=== PATIENT | female | born 2000 | race Caucasian/White ===

== ENCOUNTER 2021-01-10 14:49 | Inpatient (IN) ==
[2021-01-10] MEDS ORDERED: SODIUM CHLORIDE 0.9% 1000ML 1,000 ML IV ONE ×2 (16:40→18:41)
[2021-01-10] MEDS ORDERED: KETOROLAC TROMETHAMINE 15 MG/ML VIAL IV ONE (16:40)
--- NOTE | 2021-01-10 16:43 | Emergency Department Note ---
Impression & Plan Colitis, Abdominal pain, Anemia, Leukocytosis ED Provider Note NAME: VERA ALLEN AGE: 20 SEX: F : 2000 ARRIVES VIA: Walk-In INFORMANT: Patient ED PROVIDER(S): Yon Grayson DO CHIEF COMPLAINT: Abdominal pain and headache HPI: Patient is a 20-year-old female who presents to the ER for diffuse abdominal pain. This has been coming off and on for the past 3 months. Used to be worse with eating and now it is fairly constant since this past Saturday thr oughout the whole belly. Admits to nausea but no vomiting. No dysuria, urgency, or frequency. Last menstrual period was 1 week ago. Normal bowel movement this morning. No cough or runny nose. Pain is an 8 out of 10. Patient also has a frontal headache. She does admit to bright red blood per rectum over the past 2 weeks. She does not remember any dark tarry stools ROS: See above HPI for pertinent positives & negatives. A total of 10 systems reviewed and were otherwise negative. PAST MEDICAL HISTORY:See Below PAST SURGICAL HISTORY:See Below FAMILY HISTORY:See Below SOCIAL HISTORY:See Below HOME MEDICATIONS:See Below ALLERGIES:See Below VITALS:See Below PHYSICAL EXAMINATION: GENERAL: Sitting up in bed, alert, well appearing, well nourished, no distress, non-toxic EYE EXAM: normal conjunctiva. PERRL and EOM's grossly intact. OROPHARYNX: no exudate, no erythema, lips, buccal mucosa, and tongue normal and mucous membranes are moist NECK: supple, no nuchal rigidity, no adenopathy, non-tender LUNGS: Clear to auscultation. Normal chest wall mechanics HEART: no murmurs, S1 normal and S2 normal RECTAL: Heme positive stools ABDOMEN: abdomen soft, non-tender, normo-active bowel sounds, no masses, no rebound or guarding. UPPER EXTREMITIES: upper extremities are grossly normal. LOWER EXTREMITIES: No pitting edema. NEURO EXAM: Normal sensorium, cranial nerves II-XII grossly intact, normal speech, no gross weakness of arms, no gross weakness of legs. MEDICAL DECISION MAKING: Patient is a 20-year-old female who presents ER for above-stated complaint. IV was established blood work was obtained. Labs show leukocytosis of 12. Mild anemia at 8.8 said was significantly elevated at 8. BMP with mild hypokalemia. LFTs bili was a remark. Patient was. Patient was Covid positive. CT abdomen pelvis showed diffuse colitis. Discussed with Dr. Tucker from GI who recommends admission and 40 mg of steroids IV Solu-Medrol. Patient was given IV fluids steroids and updated bedside. Discussed with the hospitalist admitted for further work-up. Triage Nursing notes reviewed. Limited review of prior medical records performed Vital Signs: reviewed and remarkable for tachy Differential diagnosis: Differential diagnoses includes but is not limited to gastritis, peptic ulcer disease, GERD, gallbladder disease, pancreatitis, small bowel obstruction, acute coronary syndrome, pericarditis, ischemic bowel, irritable bowel disease, irritable bowel syndrome, appendicitis, diverticulitis, malignancy, hernia, urinary tract infection, torsion, /ectopic (if female), perforation, trauma, infectious. ER treatment provided: See below Diagnostics interpreted by me: ECG: none Cardiac Monitoring: An order was placed for continuous cardiac monitoring. The monitor shows a rate of 101 with sinus rhythm. Laboratory studies: As stated above and show below. Imaging studies: See below Consultation(s): Discussed with gastroenterology as stated above Discussed with hospitalist for further evaluation Procedures: none Critical Care: None Past Med/Surg History Medical History Anxiety and depression Surgical History No significant past surgical history Family History Grandmother (Maternal) Diabetes Father Hypertension Dyslipidemia Social History Smoking Status: Never smoker Second Hand Exposure: No; Hx Alcohol Use: Yes Alcohol type: wine Hx Substance Use: No Preferred Language: Tajik Communication Ability: Effective Beliefs That Will Affect Care: None Current Living Situation: Other Current Living Situation Comment: [employer] roommate current occupational status: student current occupation: at [employer] Feels Safe at Home: Yes Assistive Devices: None Allergies Allergies Allergy/AdvReac Type Severity Reaction Status Date / Time amoxicillin Allergy Verified 01/10/21 16:55 Penicillins Allergy Verified 01/10/21 16:55 Home Meds Home Medications Medication Instructions Recorded Confirmed Control 1 tab PO HS 01/10/21 01/10/21 acetaminophen 325 mg tablet 650 mg PO QID PRN 01/10/21 01/10/21 Results & Data (ED) Vital Signs Vital Signs - 24 hr 01/10/21 14:52 01/10/21 16:35 01/10/21 17:02 Temperature 36.3 C L Temperature Source Temporal Artery Scan Pulse Rate 119 H 103 H 89 Pulse Rate from SpO2 Sensor 101 H 91 H Respiratory Rate 18 17 18 Respiratory Effort / Characteristics Non-Labored Respiratory Depth Normal Blood Pressure 134/98 149/96 H Blood Pressure Mean 110 113 Pulse Oximetry 100 100 100 Oxygen Delivery Method Room Air Room Air Sepsis Recent Fever Within 48 Hours No Sepsis New/Unexplained Change in Mental Status No Sepsis Action Taken by Nursing No Action Required 01/10/21 17:30 01/10/21 18:00 01/10/21 18:30 Temperature Temperature Source Pulse Rate 87 89 102 H Pulse Rate from SpO2 Sensor 88 90 98 H Respiratory Rate 21 20 23 Respiratory Effort / Characteristics Respiratory Depth Blood Pressure 140/86 124/92 Blood Pressure Mean 104 102 Pulse Oximetry 100 98 98 Oxygen Delivery Method Room Air Sepsis Recent Fever Within 48 Hours Sepsis New/Unexplained Change in Mental Status Sepsis Action Taken by Nursing 01/10/21 19:00 01/10/21 19:30 01/10/21 20:00 Temperature Temperature Source Pulse Rate 101 H 92 H 100 H Pulse Rate from SpO2 Sensor 101 H 94 H 101 H Respiratory Rate 21 24 24 Respiratory Effort / Characteristics Respiratory Depth Blood Pressure 129/99 135/88 143/97 H Blood Pressure Mean 109 103 112 Pulse Oximetry 100 100 98 Oxygen Delivery Method Sepsis Recent Fever Within 48 Hours Sepsis New/Unexplained Change in Mental Status Sepsis Action Taken by Nursing Laboratory Data Result diagrams: 01/10/21 16:39 01/10/21 16:39 Lab Results 01/10/21 01/10/21 01/10/21 Range/Units 16:39 16:39 16:39 WBC 12.05 H (4.8-10.8) K/uL RBC 3.70 L (4.2-5.4) M/uL Hgb 8.8 L (12.0-16.0) g/dL Hct 29.4 L (37-47) % MCV 79.5 L (80-100) fL MCH 23.8 L (25-34) pg MCHC 29.9 L (32-36) g/dL RDW Std Deviation 42.0 (36.4-46.3) fL RDW Coeff of Jammie 14.6 H (11.5-14.5) % Plt Count 589 H (130-400) K/uL MPV 8.4 (7.4-10.4) fL Immature Gran % (Auto) 0.5 % Neut % (Auto) 76.3 % Lymph % (Auto) 9.7 % Lasalle % (Auto) 7.7 % Eos % (Auto) 5.6 % Baso % (Auto) 0.2 % Neut # (Auto) 9.18 H (1.4-6.5) K/uL Lymph # (Auto) 1.17 L (1.2-3.4) K/uL Lasalle # (Auto) 0.93 H (0.11-0.59) K/uL Eos # (Auto) 0.68 H (0-0.5) K/uL Baso # (Auto) 0.03 (0-0.2) K/uL Immature Gran # (Auto) 0.06 H (0.00-0.02) K/uL ESR 78 H (0-20) mm/hr Sodium 139 (136-145) mmol/L Potassium 3.4 L (3.5-5.1) mmol/L Chloride 106 (98-107) mmol/L Carbon Dioxide 26 (21-32) mmol/L Anion Gap 7.0 (3-11) BUN 8 (7-18) mg/dl Creatinine 0.79 (0.6-1.2) mg/dl Est Cr Clr Drug Dosing 119.6 ml/min Est GFR ( Amer) 124.9 ml/min Est GFR (Non-Af Amer) 107.8 ml/min BUN/Creatinine Ratio 10.2 (10-20) Glucose 102 H (70-99) mg/dl Calcium 9.2 (8.5-10.1) mg/dl Iron 15 L (35-150) mcg/dl TIBC 347 (250-450) mcg/dl Ferritin 7.0 L (8-388) ng/ml Total Bilirubin 0.1 L (0.2-1) mg/dl AST 13 L (15-37) U/L ALT 17 (12-78) U/L Alkaline Phosphatase 96 (45-117) U/L C-Reactive Protein 6.57 H (0-0.29) mg/dl Total Protein 8.1 (6.4-8.2) gm/dl Albumin 2.8 L (3.4-5.0) gm/dl Globulin 5.3 H (2.5-4.0) gm/dl Albumin/Globulin Ratio 0.5 L (0.9-2) Lipase 117 (73-393) U/L COVID-19 Eval Order SARS-CoV-2 (PCR) (Negative) 01/10/21 01/10/21 Range/Units 18:55 18:55 WBC (4.8-10.8) K/uL RBC (4.2-5.4) M/uL Hgb (12.0-16.0) g/dL Hct (37-47) % MCV (80-100) fL MCH (25-34) pg MCHC (32-36) g/dL RDW Std Deviation (36.4-46.3) fL RDW Coeff of Jammie (11.5-14.5) % Plt Count (130-400) K/uL MPV (7.4-10.4) fL Immature Gran % (Auto) % Neut % (Auto) % Lymph % (Auto) % [place] % (Auto) % Eos % (Auto) % Baso % (Auto) % Neut # (Auto) (1.4-6.5) K/uL Lymph # (Auto) (1.2-3.4) K/uL [place]alle # (Auto) (0.11-0.59) K/uL Eos # (Auto) (0-0.5) K/uL Baso # (Auto) (0-0.2) K/uL Immature Gran # (Auto) (0.00-0.02) K/uL ESR (0-20) mm/hr Sodium (136-145) mmol/L Potassium (3.5-5.1) mmol/L Chloride (98-107) mmol/L Carbon Dioxide (21-32) mmol/L Anion Gap (3-11) BUN (7-18) mg/dl Creatinine (0.6-1.2) mg/dl Est Cr Clr Drug Dosing ml/min Est GFR ( Amer) ml/min Est GFR (Non-Af Amer) ml/min BUN/Creatinine Ratio (10-20) Glucose (70-99) mg/dl Calcium (8.5-10.1) mg/dl Iron (35-150) mcg/dl TIBC (250-450) mcg/dl Ferritin (8-388) ng/ml Total Bilirubin (0.2-1) mg/dl AST (15-37) U/L ALT (12-78) U/L Alkaline Phosphatase (45-117) U/L C-Reactive Protein (0-0.29) mg/dl Total Protein (6.4-8.2) gm/dl Albumin (3.4-5.0) gm/dl Globulin (2.5-4.0) gm/dl Albumin/Globulin Ratio (0.9-2) Lipase (73-393) U/L COVID-19 Eval Order Covid19 at [facility] SARS-CoV-2 (PCR) POSITIVE A* (Negative) Administered Medications Lactated Ringer's (Lr) 1,000 mls @ 100 mls/hr IV .Q10H SILVANO Stop: 01/11/21 17:51 Last Admin: 01/10/21 22:07 Dose: 100 mls/hr Documented by: [id number] Discontinued Medications Sodium Chloride (Nss 1000ml) 1,000 mls @ 999 mls/hr IV .Q1H1M ONE Stop: 01/10/21 17:40 Last Infusion: 01/10/21 17:44 Dose: 0 mls/hr Documented by: [id number] Admin: 01/10/21 16:43 Dose: 999 mls/hr Documented by: [id number] Sodium Chloride (Nss 1000ml) 1,000 mls @ 999 mls/hr IV .Q1H1M ONE Stop: 01/10/21 19:41 Last Infusion: 01/10/21 19:55 Dose: 0 mls/hr Documented by: [id number] Admin: 01/10/21 18:54 Dose: 999 mls/hr Documented by: [id number] Ioversol (Optiray 320 100ml) 92 ml IV ONCE ONE Stop: 01/10/21 17:44 Last Admin: 01/10/21 17:46 Dose: 92 ml Documented by: [id number] Ketorolac Tromethamine (Ketorolac Tromethamine 15 Mg/Ml Vial) 15 mg IV NOW ONE Stop: 01/10/21 16:41 Last Admin: 01/10/21 16:46 Dose: 15 mg Documented by: [id number] Methylprednisolone (Methylprednisolone 40 Mg/Ml Vial) 40 mg IV NOW STA Stop: 01/10/21 18:54 Last Admin: 01/10/21 18:59 Dose: 40 mg Documented by: [id number] Potassium Chloride (Potassium Chloride Crtab 20 Meq Tabcr) 40 meq PO NOW STA Stop: 01/10/21 20:29 Last Admin: 01/10/21 20:37 Dose: 40 meq Documented by: [id number] Imaging Data Radiologist's Impression: Abdomen/Pelvis CT 01/10/21 16:40 CT OF THE ABDOMEN AND PELVIS WITH CONTRAST CLINICAL HISTORY: Abdominal pain. Diarrhea. COMPARISON STUDY: None. TECHNIQUE: Following IV administration of 92 mL of Optiray, axial images of the abdomen and pelvis were obtained from the lung bases to the proximal femurs. Images were reviewed in the axial, sagittal, and coronal planes. IV contrast was administered without complication. Automated exposure control was utilized for the study. A dose lowering technique was utilized adhering to the principles of ALARA. CT DOSE: 356.61 mGy.cm FINDINGS: Lung bases are unremarkable. No pneumatosis, free air or portal venous gas is present. The liver, spleen, adrenal glands, kidneys and pancreas are normal. There is no biliary or pancreatic ductal dilatation. No perihepatic or pericholecystic infiltration. There is no acute process. The nephrograms are symmetric. The caliber of the appendix is normal, measuring 5 mm. There is a probable 7 mm appendicolith within the appendiceal tip. There is mild adjacent infiltration. However, the findings do not strongly suggest acute appendicitis. Of note, there is long segment wall thickening of the colon and to a lesser extent the rectum. There is relative sparing of the ascending colon and cecum. There is evidence for mild hyperemia. There is trace fluid within the pelvis. There are a few mildly enlarged mesenteric lymph nodes. Index node on image 194 of 471 measures 1.3 x 1 cm. Numerous mildly enlarged pericolonic lymph nodes are also present. An index node along the superior aspect of the transverse colon me asures 1.2 x 1 cm. Major vasculature is patent. No acute fracture or suspicious lesion is identified within the visualized skeletal structures. IMPRESSION: 1. Wall thickening of the majority of the colon with evidence for hyperemia. The findings represent a nonspecific colitis which could be infectious or inflammato ry, such as ulcerative colitis, in etiology. No abscess. No free air. 2. Appendicolith within the appendiceal tip with mild adjacent infiltration. However, normal caliber appendix. Overall, the findings do not strongly suggest acute appendicitis. 3. Mildly enlarged mesenteric and pericolonic lymph nodes. Although nonspecific, these are probably reactive. ACT 112: Negative or not required by law. Electronically signed by: Alvaro Hartley M.D. 01/10/2021 6:07 PM Discharge Plan Visit Data Chief Complaint: GI Assessment Stated Complaint: STOMACH PAIN/NAUSEA/DIARRHEA/HEAD PAIN ED Provider: Yon Grayson Discharge Problem: Colitis, Abdominal pain, Anemia, Leukocytosis Patient Disposition: Admitted As Inpatient Discharge Instructions Interventions: ED Discharge Assessment Last Done: 01/10/21 21:33
[2021-01-10 16:53] LABS: Basophils # (auto) 0.03 K/uL (0-0.2); Basophils % (auto) 0.2 %; Eosinophils # (auto) 0.68 K/uL (0-0.5); Eosinophils % (auto) 5.6 %; Hematocrit (blood only) 29.4 % (37-47); Hemoglobin 8.8 g/dL (12.0-16.0); Immature Granulocytes # (auto) 0.06 K/uL (0.00-0.02); Immature Granulocytes % (auto) 0.5 %; Lymphocytes # (auto) 1.17 K/uL (1.2-3.4); Lymphocytes % (auto) 9.7 %; Mean Corpuscular Hemoglobin 23.8 pg (25-34); Mean Corpuscular Hgb Conc 29.9 g/dL (32-36); Mean Corpuscular Volume 79.5 fL (80-100); Mean Platelet Volume 8.4 fL (7.4-10.4); Monocytes # (auto) 0.93 K/uL (0.11-0.59); Monocytes % (auto) 7.7 %; Neutrophils # (auto) 9.18 K/uL (1.4-6.5); Neutrophils % (auto) 76.3 %; Platelet Count 589 K/uL (130-400); RDW Coefficient of Variation 14.6 % (11.5-14.5); White Blood Count 12.05 K/uL (4.8-10.8)
[2021-01-10 17:13] LABS: Albumin Level 2.8 gm/dl (3.4-5.0); BUN Creatinine Ratio 10.2 (10-20); Calcium 9.2 mg/dl (8.5-10.1); Creatinine Clr Calc Pharmacy 119.6 ml/min; Est GFR (African American) 124.9 ml/min; Est GFR (Non-African American) 107.8 ml/min; Potassium 3.4 mmol/L (3.5-5.1)
[2021-01-10 17:16] LABS: Albumin Globulin Ratio 0.5 (0.9-2); Bilirubin,Total 0.1 mg/dl (0.2-1); Globulin 5.3 gm/dl (2.5-4.0); Total Protein 8.1 gm/dl (6.4-8.2)
[2021-01-10] MEDS ORDERED: OPTIRAY 320 100ml IV ONE (17:43)
--- NOTE | 2021-01-10 18:08 | CT Scan Report ---
CT OF THE ABDOMEN AND PELVIS WITH CONTRAST CLINICAL HISTORY: Abdominal pain. Diarrhea. COMPARISON STUDY: None. TECHNIQUE: Following IV administration of 92 mL of Optiray, axial images of the abdomen and pelvis we re obtained from the lung bases to the proximal femurs. Images were reviewed in the axial, sagittal, and coronal planes. IV contrast was administered without complication. Automated exposure control wa s utilized for the study. A dose lowering technique was utilized adhering to the principles of ALARA . CT DOSE: 356.61 mGy.cm FINDINGS: Lung bases are unremarkable. No pneumatosis, free air or portal venous gas is present. The liver, spleen, adrenal glands, kidneys and pancreas are normal. There is no biliary or pancreatic lennie sean dilatation. No perihepatic or pericholecystic infiltration. There is no acute process. The nephro grams are symmetric. The caliber of the appendix is normal, measuring 5 mm. There is a probable 7 mm appendicolith within the appendiceal tip. There is mild adjacent infiltration. However, the findings do not strongly suggest acute appendicitis. Of note, there is long segment wall thickening of the col on and to a lesser extent the rectum. There is relative sparing of the ascending colon and cecum. The re is evidence for mild hyperemia. There is trace fluid within the pelvis. There are a few mildly enl arged mesenteric lymph nodes. Index node on image 194 of 471 measures 1.3 x 1 cm. Numerous mildly enl arged pericolonic lymph nodes are also present. An index node along the superior aspect of the transv erse colon measures 1.2 x 1 cm. Major vasculature is patent. No acute fracture or suspicious lesion i s identified within the visualized skeletal structures. IMPRESSION: 1. Wall thickening of the majority of the colon with evidence for hyperemia. The findings represent a nonspecific colitis which could be infectious or inflammatory, such as ulcerative colitis, in etiolo gy. No abscess. No free air. 2. Appendicolith within the appendiceal tip with mild adjacent infiltration. However, normal caliber appendix. Overall, the findings do not strongly suggest acute appendicitis. 3. Mildly enlarged mesenteric and pericolonic lymph nodes. Although nonspecific, these are probably r eactive. ACT 112: Negative or not required by law. Electronically signed by: Alvaro Hartley M.D. 01/10/2021 6:07 PM
[2021-01-10 19:16] LABS: C Reactive Protein 6.57 mg/dl (0-0.29)
--- NOTE | 2021-01-10 20:03 | History & Physical Report ---
Date of Service January 10, 2021 Assessment & Plan (1) Abdominal pain: Plan: 20yo female with no significant past medical or surgical history presenting with abdominal pain, bloody diarrhea ongoing for the last week. Patient has been experiencing intermittent lower abdominal pain x 3-4 months which has worsened this week. Workup is significant for neutrophil predominant leukocytosis with WBC=12.05, microcytic/hypochromic anemia with Hgb-8.8 and Hct = 29.4, Qoo=086, elevated ESR of 78 and CRP of 6.57. CT of the abdomen with wall thickening of the majority of the colon suggestive of nonspecific colitis - infectious vs inflammatory. Differential to include i nflammatory bowel disease - Crohns or Ulcerative colitis, infectious colitis -Observation to medical -Check stool for c. diff, stool culture. Patient does not endorse practices that would place her at risk for parasitic infection. No recent travel or camping -Solumedrol 40mg IV BID -Tylenol, OxyIR as needed for pain -Zofran as needed for nausea -GI consultation appreciated (2) Colitis: Plan: As above. Infectious vs inflammatory process (3) Anemia: Plan: Microcytic/hypochromic anemia -Check iron studies -Check CBC in AM Plan: F/E/N - LR at 100mL/hr x 2 liters, K repletion, repeat labs in AM, NPO for now Ppx - SCDs Code - Full Dispo - Observation to medical History of Present Illness Chief Complaint: Abdominal pain Primary Care Provider: [facility] Vera Segura is a 20yo female with no significant medical or surgical history presenting with abdominal pain. Patient is a [employer] student studying [employer]. She has been having intermittent abdominal pain for the last 3-4 months. She was seen by her PCP in [place] prior to returning to school. She had an abdominal ultrasound and lab work which was unrevealing. She is scheduled to see [facility] on 01/25/21. She reports worsening abdominal pain over the last week. Abdominal pain is severe, cramping, located in bandlike distribution of the lower abdomen. She has some vomiting in response to the pain when it is severe but does not endorse nausea. She has intermittent abdominal bloating, diarrhea with blood this week. Pain is unrelated to oral intake and is almost always relieved with bowel movement. She denies painful bowel movements. Has occasional tenesmus. Patient has tried dietary elimination with no relief in symptoms. She cut out lactose x 2 weeks as well as gluten x 2 weeks with no improvement. She has no personal or family history of inflammatory bowel disease. No recent travel, sick contacts, altered dietary habits or ingestion of raw/undercooked foods. Additionally she describes occasional migratory body aches and pains such as pain in her shoulders. She had pain in her right heel 4 days ago with difficulty walking. She also had a headache today that she describes as shooting pain in her forehead. Otherwise, no complaints. She denies fever, chills, cough, SOB, chest pain. Denies rashes, skin lesions, joint pain or inflammation, eye redness or pain, oral lesions/ulcers ER Course: Solumedrol 40mg IV, Toradol 15mg IV, NSS x 2L Allergies Allergy/AdvReac Type Severity Reaction Status Date / Time amoxicillin Allergy Verified 01/10/21 16:55 Penicillins Allergy Verified 01/10/21 16:55 Home Medications Medication Instructions Recorded Confirmed Type Control 1 tab PO HS 01/10/21 01/10/21 History acetaminophen 325 mg tablet 650 mg PO QID PRN 01/10/21 01/10/21 History Past Med/Surg History Medical History Anxiety and depression Surgical History No significant past surgical history Family History Grandmother (Maternal) Diabetes Father Hypertension Dyslipidemia Social History Smoking Status: Never smoker Second Hand Exposure: No; Hx Alcohol Use: No Hx Substance Use: No Preferred Language: Citizen Of [place] current occupational status: student current occupation: at [employer] Feels Safe at Home: Yes Review of Systems Review of Systems: All systems reviewed & are unremarkable except as noted in HPI & below Physical Exam Physical Exam: General: patient resting comfortably, NAD, non-toxic in appearance, AA&O x 4 Skin: warm, dry, intact, no rashes or lesions HEENT: NC/AT, PERRL, EOMI, anicteric sclera, conjunctiva without injection, external ear normal to inspection and nontender, nares patent, moist mucus membranes, dentition intact, no oropharyngeal lesions, neck supple, trachea midline, no LAD, no thyromegaly, no JVD Heart: +S1/S2, regular, tachycardic, no m/r/g Lungs: equal air entry bilaterally, no rales/rhonchi/wheezes Abd: +BS, soft, tender in the lower abdomen without rebound/guarding/peritoneal signs, no masses/organomegaly/ascites Ext: warm, 2+ pulses in UE/LE bilaterally, no clubbing/cyanosis or edema Neuro: nonfocal, patient AA&O x 4, speech intact, no facial droop, moving all extremities on command with equal strength 5/5 Results & Data Results & Data ([facility]) Vital Signs (Past 12 Hours) Vital Signs Temp Pulse Resp BP Pulse Ox 01/10/21 19:30 92 H 24 135/88 100 01/10/21 19:00 101 H 21 129/99 100 01/10/21 18:30 102 H 23 124/92 98 01/10/21 18:00 89 20 140/86 98 01/10/21 17:30 87 21 100 01/10/21 17:02 89 18 100 01/10/21 16:35 103 H 17 149/96 H 100 01/10/21 14:52 36.3 C L 119 H 18 134/98 100 Laboratory Results Laboratory Results WBC 12.05 K/uL (4.8-10.8) H 01/10/21 16:39 RBC 3.70 M/uL (4.2-5.4) L 01/10/21 16:39 Hgb 8.8 g/dL (12.0-16.0) L 01/10/21 16:39 Hct 29.4 % (37-47) L 01/10/21 16:39 MCV 79.5 fL (80-100) L 01/10/21 16:39 MCH 23.8 pg (25-34) L 01/10/21 16:39 MCHC 29.9 g/dL (32-36) L 01/10/21 16:39 RDW Std Deviation 42.0 fL (36.4-46.3) 01/10/21 16:39 RDW Coeff of Jammie 14.6 % (11.5-14.5) H 01/10/21 16:39 Plt Count 589 K/uL (130-400) H 01/10/21 16:39 MPV 8.4 fL (7.4-10.4) 01/10/21 16:39 Immature Gran % (Auto) 0.5 % 01/10/21 16:39 Neut % (Auto) 76.3 % 01/10/21 16:39 Lymph % (Auto) 9.7 % 01/10/21 16:39 [place] % (Auto) 7.7 % 01/10/21 16:39 Eos % (Auto) 5.6 % 01/10/21 16:39 Baso % (Auto) 0.2 % 01/10/21 16:39 Neut # (Auto) 9.18 K/uL (1.4-6.5) H 01/10/21 16:39 Lymph # (Auto) 1.17 K/uL (1.2-3.4) L 01/10/21 16:39 [place] # (Auto) 0.93 K/uL (0.11-0.59) H 01/10/21 16:39 Eos # (Auto) 0.68 K/uL (0-0.5) H 01/10/21 16:39 Baso # (Auto) 0.03 K/uL (0-0.2) 01/10/21 16:39 Immature Gran # (Auto) 0.06 K/uL (0.00-0.02) H 01/10/21 16:39 ESR 78 mm/hr (0-20) H 01/10/21 16:39 Sodium 139 mmol/L (136-145) 01/10/21 16:39 Potassium 3.4 mmol/L (3.5-5.1) L 01/10/21 16:39 Chloride 106 mmol/L (98-107) 01/10/21 16:39 Carbon Dioxide 26 mmol/L (21-32) 01/10/21 16:39 Anion Gap 7.0 (3-11) 01/10/21 16:39 BUN 8 mg/dl (7-18) 01/10/21 16:39 Creatinine 0.79 mg/dl (0.6-1.2) 01/10/21 16:39 Est Cr Clr Drug Dosing 119.6 ml/min 01/10/21 16:39 Est GFR ( Amer) 124.9 ml/min 01/10/21 16:39 Est GFR (Non-Af Amer) 107.8 ml/min 01/10/21 16:39 BUN/Creatinine Ratio 10.2 (10-20) 01/10/21 16:39 Glucose 102 mg/dl (70-99) H 01/10/21 16:39 Calcium 9.2 mg/dl (8.5-10.1) 01/10/21 16:39 Total Bilirubin 0.1 mg/dl (0.2-1) L 01/10/21 16:39 AST 13 U/L (15-37) L 01/10/21 16:39 ALT 17 U/L (12-78) 01/10/21 16:39 Alkaline Phosphatase 96 U/L (45-117) 01/10/21 16:39 C-Reactive Protein 6.57 mg/dl (0-0.29) H 01/10/21 16:39 Total Protein 8.1 gm/dl (6.4-8.2) 01/10/21 16:39 Albumin 2.8 gm/dl (3.4-5.0) L 01/10/21 16:39 Globulin 5.3 gm/dl (2.5-4.0) H 01/10/21 16:39 Albumin/Globulin Ratio 0.5 (0.9-2) L 01/10/21 16:39 Lipase 117 U/L (73-393) 01/10/21 16:39 COVID-19 Eval Order Covid19 at [facility] 01/10/21 18:55 Impressions Abdomen/Pelvis CT 01/10/21 16:40 CT OF THE ABDOMEN AND PELVIS WITH CONTRAST CLINICAL HISTORY: Abdominal pain. Diarrhea. COMPARISON STUDY: None. TECHNIQUE: Following IV administration of 92 mL of Optiray, axial images of the abdomen and pelvis were obtained from the lung bases to the proximal femurs. Images were reviewed in the axial, sagittal, and coronal planes. IV contrast was administered without complication. Automated exposure control was utilized for the study. A dose lowering technique was utilized adhering to the principles of ALARA. CT DOSE: 356.61 mGy.cm FINDINGS: Lung bases are unremarkable. No pneumatosis, free air or portal venous gas is present. The liver, spleen, adrenal glands, kidneys and pancreas are normal. There is no biliary or pancreatic ductal dilatation. No perihepatic or pericholecystic infiltration. There is no acute process. The nephrograms are symmetric. The caliber of the appendix is normal, measuring 5 mm. There is a probable 7 mm appendicolith within the appendiceal tip. There is mild adjacent infiltration. However, the findings do not strongly suggest acute appendicitis. Of note, there is long segment wall thickening of the colon and to a lesser extent the rectum. There is relative sparing of the ascending colon and cecum. There is evidence for mild hyperemia. There is trace fluid within the pelvis. There are a few mildly enlarged mesenteric lymph nodes. Index node on image 194 of 471 measures 1.3 x 1 cm. Numerous mildly enlarged pericolonic lymph nodes are also present. An index node along the superior aspect of the transverse colon measures 1.2 x 1 cm. Major vasculature is patent. No acute fracture or suspicious lesion is identified within the visualized skeletal structures. IMPRESSION: 1. Wall thickening of the majority of the colon with evidence for hyperemia. The findings represent a nonspecific colitis which could be infectious or inflammatory, such as ulcerative colitis, in etiology. No abscess. No free air. 2. Appendicolith within the appendiceal tip with mild adjacent infiltration. However, normal caliber appendix. Overall, the findings do not strongly suggest acute appendicitis. 3. Mildly enlarged mesenteric and pericolonic lymph nodes. Although nonspecific, these are probably reactive. ACT 112: Negative or not required by law. Electronically signed by: Alvaro Hartley M.D. 01/10/2021 6:07 PM Code Status & VTE Plan VTE Prophylaxis Plan VTE Prophylaxis will be ordered: Yes PG Care Time/CCT Total # of Minutes Spent Total Time Spent with Patient: Total time spent is greater than 50% in coordination of care (as documented) at patient's floor/unit and/or counseling patient: Coding Level of Care Code INT OBSERVATION CARE 50M LVL 2 Diagnoses Abdominal pain R10.9 Colitis K52.9 Anemia D64.9
[2021-01-10] MEDS ORDERED: POTASSIUM CHLORIDE CRTAB 20 MEQ TABCR PO STA (20:28)
[2021-01-10] MEDS ORDERED: oxyCODONE HCL IR 5 MG TAB (IMMEDIATE RELEASE) PO PRN ×2 (21:52)
[2021-01-10] MEDS ORDERED: ONDANSETRON INJ 2 MG/ML 2 ML VIAL IV PRN (21:52)
[2021-01-10] MEDS: LACTATED RINGER'S 1,000 ML IV SCH (22:07)
[2021-01-11 06:45] LABS: Appearance Urine Clear (Clear); Bilirubin Urine Negative (Negative); Blood Urine Negative (Negative); Color Urine Yellow; Glucose Urine UA Negative (Negative); Ketones Urine 2+ (Negative); Leukocyte Esterase Urine Negative (Negative); Nitrite Urine Negative (Negative); Protein Urine Negative (Negative); Specific Gravity Urine 1.015 (1.000-1.030); Urobilinogen Urine Negative (Negative); pH Urine 6.5 (4.5-7.5)
[2021-01-11 07:33] LABS: Basophils # (auto) 0.01 K/uL (0-0.2); Basophils % (auto) 0.1 %; Hematocrit (blood only) 27.9 % (37-47); Hemoglobin 8.3 g/dL (12.0-16.0); Immature Granulocytes # (auto) 0.07 K/uL (0.00-0.02); Immature Granulocytes % (auto) 0.8 %; Lymphocytes # (auto) 0.64 K/uL (1.2-3.4); Lymphocytes % (auto) 7.5 %; Mean Corpuscular Hemoglobin 23.3 pg (25-34); Mean Corpuscular Hgb Conc 29.7 g/dL (32-36); Mean Corpuscular Volume 78.4 fL (80-100); Mean Platelet Volume 8.7 fL (7.4-10.4); Monocytes # (auto) 0.32 K/uL (0.11-0.59); Monocytes % (auto) 3.8 %; Neutrophils # (auto) 7.45 K/uL (1.4-6.5); Neutrophils % (auto) 87.8 %; Platelet Count 597 K/uL (130-400); RDW Coefficient of Variation 14.3 % (11.5-14.5); RDW Standard Deviation 40.9 fL (36.4-46.3); Red Blood Count 3.56 M/uL (4.2-5.4); White Blood Count 8.49 K/uL (4.8-10.8)
[2021-01-11 08:09] LABS: Alanine Aminotransferase 17 U/L (12-78); Albumin Level 2.4 gm/dl (3.4-5.0); Alkaline Phosphatase 81 U/L (45-117); Aspartate Aminotransferase 15 U/L (15-37); BUN Creatinine Ratio 9.8 (10-20); Bilirubin Direct < 0.1 mg/dl (0-0.2); Bilirubin,Total 0.2 mg/dl (0.2-1); Blood Urea Nitrogen 6 mg/dl (7-18); Calcium 9.1 mg/dl (8.5-10.1); Carbon Dioxide 22 mmol/L (21-32); Chloride 107 mmol/L (98-107); Creatinine Clr Calc Pharmacy 151.2 ml/min; Est GFR (African American) 149.7 ml/min; Est GFR (Non-African American) 129.1 ml/min; Glucose 110 mg/dl (70-99); Potassium 4.2 mmol/L (3.5-5.1); Sodium 138 mmol/L (136-145); Total Protein 7.1 gm/dl (6.4-8.2)
[2021-01-11] MEDS: LACTATED RINGER'S 1,000 ML IV SCH ×2 (08:33→23:25)
[2021-01-11] MEDS: methylPREDNISolone 40 MG in SYRINGE 0 ML IV SCH ×2 (08:35→21:01)
--- NOTE | 2021-01-11 11:35 | Gastrointestinal Consultation ---
Date of Consultation January 11, 2021 Assessment & Plan (1) Colitis: (2) Anemia: (3) Abdominal pain: This is a 20-year-old female who was previously in her usual state of health until earlier this summer when she began to develop abdominal symptoms including abdominal cramping and diarrhea. Symptoms worsened and recently she has developed hematochezia with diarrhea, and worsening abdominal pain. She is a [employer] student, typically resides in [place]. Work-up notable for non specific lightest on imaging, with elevated inflammatory markers, and anemia. This raises suspicion for IBD versus infectious colitis. - Agree with IV Solu-Medrol 40 mg twice daily - Recommend bowel rest for now - Supportive care with IVF - Analgesia as needed - Unclear if she would benefit from antibiotics at this point; will await stool studies - Would monitor and document stool output - She is scheduled for GI clinic appointment in January, and I encouraged her to keep this appointment. Likely she will need colonoscopy in follow-up of her symptoms and imaging, lab findings Thank you for allowing us to participate in the care of this patient. Please call with any acute changes, questions or concerns. Please see addendum below with additional recommendation from my supervising physician. History of Present Illness Reason for Consultation: Possible UC Requesting Physician: Dr. Vera Elizabeth Attending Physician: Rojas Meng History of Present Illness This is a 20 y/o female with no significant PMhx who has been having stomach issues since September, including intermittent abd cramping, mostly postprandial along with diarrhea. Symptoms got worse as the summer progressed, and she had tests by a provider in [place] (where she is from), including abdominal ultrasound and lab work - states "was normal." She is set-up with [facility] in January. Symptoms got worse over the last few weeks with bilateral lower abd pain that is fairly constant; intense cramping and having intermittent vomiting, along with hematochezia for the last week that would occur with each BM (has diarrhea 5-6 x a day). Last BM and episode of hematochezia was yest morning. Prior to symptoms starting was having 1 formed brown per day. She presented to the ER for the symptoms. Patient was tested and found to be Covid positive, though she is having no symptoms. Work-up significant for leukocytosis, WBC 12 K, microcytic anemia with hemoglobin 8.8, HCT 29%, PLT 589, elevated ESR 78, CRP 6.57. CTAP with suggestion of nonspecific colitis of the majority of the colon. Stool studies have been ordered, however patient has not had any BMs since admission. She was placed on Solu-Medrol 40 mg IV twice daily. She was admitted to isolation with her positive Covid. Today leukocytosis improved, Hgb 8.3. Given her Covid diagnosis, chart was reviewed and I spoke to her on the phone. She states she is feeling much better today, abdominal pain improved, has not had any BMs, no recurrent hematochezia. No hematemesis or melena, fevers or chills, chest pain or shortness of breath, leg edema, rashes, headache. No recent ABX prior to her symptoms starting. Takes no OTC meds; only rx is BCP. She is a [employer] student. No family history of IBD. Allergies Allergy/AdvReac Type Severity Reaction Status Date / Time amoxicillin Allergy Verified 01/10/21 16:55 Penicillins Allergy Verified 01/10/21 16:55 Home Medications Medication Instructions Recorded Confirmed Type Control 1 tab PO HS 01/10/21 01/10/21 History acetaminophen 325 mg tablet 650 mg PO QID PRN 01/10/21 01/10/21 History Patient History Medical History Anxiety and depression Surgical History No significant past surgical history Family History Grandmother (Maternal) Diabetes Father Hypertension Dyslipidemia Social History Smoking Status: Never smoker Second Hand Exposure: No; Hx Alcohol Use: Yes Alcohol type: wine Hx Substance Use: No Preferred Language: Turkmen Communication Ability: Effective Beliefs That Will Affect Care: None Current Living Situation: Other Current Living Situation Comment: [employer] roommate current occupational status: student current occupation: at [employer] Feels Safe at Home: Yes Assistive Devices: None Review of Systems Review of Systems: A complete review of systems was performed and negative except as noted in HPI Physical Exam Physical Exam: Physical exam not performed as this was a telephone call only Results & Data ([facility]) Vital Signs (Past 12 Hours) Vital Signs Temp Pulse Resp BP Pulse Ox 01/11/21 08:38 36.6 C 106 H 18 129/87 100 Laboratory Results 01/11/21 01/11/21 01/11/21 Range/Units 07:04 07:04 06:15 WBC 8.49 (4.8-10.8) K/uL RBC 3.56 L (4.2-5.4) M/uL Hgb 8.3 L (12.0-16.0) g/dL Hct 27.9 L (37-47) % MCV 78.4 L (80-100) fL MCH 23.3 L (25-34) pg MCHC 29.7 L (32-36) g/dL RDW Std Deviation 40.9 (36.4-46.3) fL RDW Coeff of Jammie 14.3 (11.5-14.5) % Plt Count 597 H (130-400) K/uL MPV 8.7 (7.4-10.4) fL Immature Gran % (Auto) 0.8 % Neut % (Auto) 87.8 % Lymph % (Auto) 7.5 % [place] % (Auto) 3.8 % Eos % (Auto) 0.0 % Baso % (Auto) 0.1 % Neut # (Auto) 7.45 H (1.4-6.5) K/uL Lymph # (Auto) 0.64 L (1.2-3.4) K/uL [place] # (Auto) 0.32 (0.11-0.59) K/uL Eos # (Auto) 0.00 (0-0.5) K/uL Baso # (Auto) 0.01 (0-0.2) K/uL Immature Gran # (Auto) 0.07 H (0.00-0.02) K/uL ESR (0-20) mm/hr Sodium 138 (136-145) mmol/L Potassium 4.2 D (3.5-5.1) mmol/L Chloride 107 (98-107) mmol/L Carbon Dioxide 22 (21-32) mmol/L Anion Gap 8.0 (3-11) BUN 6 L (7-18) mg/dl Creatinine 0.63 (0.6-1.2) mg/dl Est Cr Clr Drug Dosing 151.2 ml/min Est GFR ( Amer) 149.7 ml/min Est GFR (Non-Af Amer) 129.1 ml/min BUN/Creatinine Ratio 9.8 L (10-20) Glucose 110 H (70-99) mg/dl Calcium 9.1 (8.5-10.1) mg/dl Iron (35-150) mcg/dl TIBC (250-450) mcg/dl Ferritin (8-388) ng/ml Total Bilirubin 0.2 (0.2-1) mg/dl Direct Bilirubin < 0.1 (0-0.2) mg/dl AST 15 (15-37) U/L ALT 17 (12-78) U/L Alkaline Phosphatase 81 (45-117) U/L C-Reactive Protein (0-0.29) mg/dl Total Protein 7.1 (6.4-8.2) gm/dl Albumin 2.4 L (3.4-5.0) gm/dl Globulin (2.5-4.0) gm/dl Albumin/Globulin Ratio (0.9-2) Lipase (73-393) U/L Urine Color Urine Appearance (Clear) Urine pH (4.5-7.5) Ur Specific [place] (1.000-1.030) Urine Protein (Negative) Urine Glucose (UA) (Negative) Urine Ketones (Negative) Urine Blood (Negative) Urine Nitrite (Negative) Urine Bilirubin (Negative) Urine Urobilinogen (Negative) Ur Leukocyte Esterase (Negative) POC Ur Test Pending COVID-19 Eval Order SARS-CoV-2 (PCR) (Negative) 01/11/21 01/10/21 01/10/21 Range/Units 06:15 18:55 18:55 WBC (4.8-10.8) K/uL RBC (4.2-5.4) M/uL Hgb (12.0-16.0) g/dL Hct (37-47) % MCV (80-100) fL MCH (25-34) pg MCHC (32-36) g/dL RDW Std Deviation (36.4-46.3) fL RDW Coeff of Jammie (11.5-14.5) % Plt Count (130-400) K/uL MPV (7.4-10.4) fL Immature Gran % (Auto) % Neut % (Auto) % Lymph % (Auto) % [place] % (Auto) % Eos % (Auto) % Baso % (Auto) % Neut # (Auto) (1.4-6.5) K/uL Lymph # (Auto) (1.2-3.4) K/uL [place] # (Auto) (0.11-0.59) K/uL Eos # (Auto) (0-0.5) K/uL Baso # (Auto) (0-0.2) K/uL Immature Gran # (Auto) (0.00-0.02) K/uL ESR (0-20) mm/hr Sodium (136-145) mmol/L Potassium (3.5-5.1) mmol/L Chloride (98-107) mmol/L Carbon Dioxide (21-32) mmol/L Anion Gap (3-11) BUN (7-18) mg/dl Creatinine (0.6-1.2) mg/dl Est Cr Clr Drug Dosing ml/min Est GFR ( Amer) ml/min Est GFR (Non-Af Amer) ml/min BUN/Creatinine Ratio (10-20) Glucose (70-99) mg/dl Calcium (8.5-10.1) mg/dl Iron (35-150) mcg/dl TIBC (250-450) mcg/dl Ferritin (8-388) ng/ml Total Bilirubin (0.2-1) mg/dl Direct Bilirubin (0-0.2) mg/dl AST (15-37) U/L ALT (12-78) U/L Alkaline Phosphatase (45-117) U/L C-Reactive Protein (0-0.29) mg/dl Total Protein (6.4-8.2) gm/dl Albumin (3.4-5.0) gm/dl Globulin (2.5-4.0) gm/dl Albumin/Globulin Ratio (0.9-2) Lipase (73-393) U/L Urine Color Yellow Urine Appearance Clear (Clear) Urine pH 6.5 (4.5-7.5) Ur Specific [place] 1.015 (1.000-1.030) Urine Protein Negative (Negative) Urine Glucose (UA) Negative (Negative) Urine Ketones 2+ H (Negative) Urine Blood Negative (Negative) Urine Nitrite Negative (Negative) Urine Bilirubin Negative (Negative) Urine Urobilinogen Negative (Negative) Ur Leukocyte Esterase Negative (Negative) POC Ur Test COVID-19 Eval Order Covid19 at [facility] SARS-CoV-2 (PCR) POSITIVE A* (Negative) 01/10/21 01/10/21 01/10/21 Range/Units 16:39 16:39 16:39 WBC 12.05 H (4.8-10.8) K/uL RBC 3.70 L (4.2-5.4) M/uL Hgb 8.8 L (12.0-16.0) g/dL Hct 29.4 L (37-47) % MCV 79.5 L (80-100) fL MCH 23.8 L (25-34) pg MCHC 29.9 L (32-36) g/dL RDW Std Deviation 42.0 (36.4-46.3) fL RDW Coeff of Jammie 14.6 H (11.5-14.5) % Plt Count 589 H (130-400) K/uL MPV 8.4 (7.4-10.4) fL Immature Gran % (Auto) 0.5 % Neut % (Auto) 76.3 % Lymph % (Auto) 9.7 % [place] % (Auto) 7.7 % Eos % (Auto) 5.6 % Baso % (Auto) 0.2 % Neut # (Auto) 9.18 H (1.4-6.5) K/uL Lymph # (Auto) 1.17 L (1.2-3.4) K/uL [place] # (Auto) 0.93 H (0.11-0.59) K/uL Eos # (Auto) 0.68 H (0-0.5) K/uL Baso # (Auto) 0.03 (0-0.2) K/uL Immature Gran # (Auto) 0.06 H (0.00-0.02) K/uL ESR 78 H (0-20) mm/hr Sodium 139 (136-145) mmol/L Potassium 3.4 L (3.5-5.1) mmol/L Chloride 106 (98-107) mmol/L Carbon Dioxide 26 (21-32) mmol/L Anion Gap 7.0 (3-11) BUN 8 (7-18) mg/dl Creatinine 0.79 (0.6-1.2) mg/dl Est Cr Clr Drug Dosing 119.6 ml/min Est GFR ( Amer) 124.9 ml/min Est GFR (Non-Af Amer) 107.8 ml/min BUN/Creatinine Ratio 10.2 (10-20) Glucose 102 H (70-99) mg/dl Calcium 9.2 (8.5-10.1) mg/dl Iron 15 L (35-150) mcg/dl TIBC 347 (250-450) mcg/dl Ferritin 7.0 L (8-388) ng/ml Total Bilirubin 0.1 L (0.2-1) mg/dl Direct Bilirubin (0-0.2) mg/dl AST 13 L (15-37) U/L ALT 17 (12-78) U/L Alkaline Phosphatase 96 (45-117) U/L C-Reactive Protein 6.57 H (0-0.29) mg/dl Total Protein 8.1 (6.4-8.2) gm/dl Albumin 2.8 L (3.4-5.0) gm/dl Globulin 5.3 H (2.5-4.0) gm/dl Albumin/Globulin Ratio 0.5 L (0.9-2) Lipase 117 (73-393) U/L Urine Color Urine Appearance (Clear) Urine pH (4.5-7.5) Ur Specific [place] (1.000-1.030) Urine Protein (Negative) Urine Glucose (UA) (Negative) Urine Ketones (Negative) Urine Blood (Negative) Urine Nitrite (Negative) Urine Bilirubin (Negative) Urine Urobilinogen (Negative) Ur Leukocyte Esterase (Negative) POC Ur Test COVID-19 Eval Order SARS-CoV-2 (PCR) (Negative) Diagnostic Findings CTAP: FINDINGS: Lung bases are unremarkable. No pneumatosis, free air or portal venous gas is present. The liver, spleen, adrenal glands, kidneys and pancreas are normal. There is no biliary or pancreatic ductal dilatation. No perihepatic or pericholecystic infiltration. There is no acute process. The nephrograms are symmetric. The caliber of the appendix is normal, measuring 5 mm. There is a probable 7 mm appendicolith within the appendiceal tip. There is mild adjacent infiltration. However, the findings do not strongly suggest acute appendicitis. Of note, there is long segment wall thickening of the colon and to a lesser extent the rectum. There is relative sparing of the ascending colon and cecum. There is evidence for mild hyperemia. There is trace fluid within the pelvis. There are a few mildly enlarged mesenteric lymph nodes. Index node on image 194 of 471 measures 1.3 x 1 cm. Numerous mildly enlarged pericolonic lymph nodes are also present. An index node along the superior aspect of the transverse colon measures 1.2 x 1 cm. Major vasculature is patent. No acute fracture or suspicious lesion is identified within the visualized skeletal structures. IMPRESSION: 1. Wall thickening of the majority of the colon with evidence for hyperemia. The findings represent a nonspecific colitis which could be infectious or inflammatory, such as ulcerative colitis, in etiology. No abscess. No free air. 2. Appendicolith within the appendiceal tip with mild adjacent infiltration. However, normal caliber appendix. Overall, the findings do not strongly suggest acute appendicitis. 3. Mildly enlarged mesenteric and pericolonic lymph nodes. Although nonspecific, these are probably reactive. (1) Anemia Anemia type: unspecified type Qualified Code(s): D64.9 - Anemia, unspecified (2) Abdominal pain Abdominal location: unspecified location Qualified Code(s): R10.9 - Unspecified abdominal pain
[2021-01-11] MEDS: ACETAMINOPHEN 325 MG TAB PO PRN (16:10)
--- NOTE | 2021-01-11 22:35 | Hospitalist Progress Note ---
Date of Service January 11, 2021 Assessment & Plan (1) Colitis: Plan: History, labs, and CT findings all concerning for IBD - UC. Infectious colitis theoretically possible but doubtful. Await cdiff/stool cx. GI has seen - they advise ongoing solumedrol. IBD suspected. Cont bowel rest today; perhaps clears tomorrow. Allow modest amount of ice chips today. Repeat labs am. IVF. (2) Iron deficiency anemia: Plan: Severe. Consider IV venofer x 3 doses while hospitalized. Check b12/folate to be complete given her malnutrition. 2nd to #1. She reports that menses are light/not heavy. (3) COVID-19: Plan: Tested positive upon admission. No symptoms except for perhaps headache, N/V. Is fully vaccinated. Could be a false positive test. Will repeat a COVID test tonight. If repeat test is neg - then would get a 3rd test on and if 3rd test is negative this would argue for false positivity at admission. If positive on tonight's test no further testing thereafter. Keep in airborne isolation. (4) Migraine headache: Plan: imitrex prn ordered tylenol prn steroids for #1 should help (5) Thrombocytosis: Plan: could be 2nd to #2 could be reactive either way simply trend (6) Severe protein-calorie malnutrition: Plan: 10+ pounds of weight loss since late November 21 #1 once able to take PO - add MVI add nutritional supplements check b12/folate consider checking 25-OH vit D Plan: spoke with pt's mother this evening - extensive update given plan of care discussed concern for IBD discussed questions answered Admission and Anticipated Discharge Date Admission Date: January 11, 2021 Subjective patient resting comfortably during the visit she c/o right-sided frontal headache - "behind the eye" - which extends back to the occiput has h/o migraines - feels somewhat like a migraine, but also somewhat different mother also has migraines has never taken prescription migraine meds patient states that for months she had abdominal upset and pain with diarrhea diarrhea worsened late November upon her return to [employer] has lost 10 pounds since school started diarrhea became bloody since late November no diarrhea since arrival to [facility] had COVID vaccine - 2 shots of Pfizer - last spring attended the [employer] [facility] [facility] foot ball game last weekend none of her roommates are sick with COVID Review of Systems Review of Systems: gen - no fevers, chills, sweats musculo - no myalgias, no arthralgias HEENT - no loss of taste or smell; no nasal congestion pulm - no cough, no dyspnea cv - no chest pain GI - had emesis yesterday, nausea, LLQ abd pain skin - no rash Physical Exam Physical Exam: gen - NAD, pleasant, nontoxic mouth - MMM neck - no JVD heart - RRR, s1 s2, no murmur lungs - CTA b/l abd - soft, tender LLQ w/ palpation; BS+, no HSM ext - no edema skin - no rash Results & Data Results & Data ([facility]) Vital Signs (Past 12 Hours) Vital Signs Temp Resp BP Pulse Ox 01/11/21 14:12 36.8 C 17 126/87 98 Laboratory Results Laboratory Results - last 24 hr 01/11/21 01/11/21 01/11/21 06:15 06:15 07:04 WBC 8.49 RBC 3.56 L Hgb 8.3 L Hct 27.9 L MCV 78.4 L MCH 23.3 L MCHC 29.7 L RDW Std Deviation 40.9 RDW Coeff of Jammie 14.3 Plt Count 597 H MPV 8.7 Immature Gran % (Auto) 0.8 Neut % (Auto) 87.8 Lymph % (Auto) 7.5 [place] % (Auto) 3.8 Eos % (Auto) 0.0 Baso % (Auto) 0.1 Neut # (Auto) 7.45 H Lymph # (Auto) 0.64 L [place] # (Auto) 0.32 Eos # (Auto) 0.00 Baso # (Auto) 0.01 Immature Gran # (Auto) 0.07 H Sodium Potassium Chloride Carbon Dioxide Anion Gap BUN Creatinine Est Cr Clr Drug Dosing Est GFR ( Amer) Est GFR (Non-Af Amer) BUN/Creatinine Ratio Glucose Calcium Total Bilirubin Direct Bilirubin AST ALT Alkaline Phosphatase Total Protein Albumin Urine Color Yellow Urine Appearance Clear Urine pH 6.5 Ur Specific [place] 1.015 Urine Protein Negative Urine Glucose (UA) Negative Urine Ketones 2+ H Urine Blood Negative Urine Nitrite Negative Urine Bilirubin Negative Urine Urobilinogen Negative Ur Leukocyte Esterase Negative POC Ur Test Pending COVID-19 Eval Order SARS-CoV-2 (PCR) 01/11/21 01/11/21 01/11/21 07:04 21:20 21:20 WBC RBC Hgb Hct MCV MCH MCHC RDW Std Deviation RDW Coeff of Jammie Plt Count MPV Immature Gran % (Auto) Neut % (Auto) Lymph % (Auto) [place] % (Auto) Eos % (Auto) Baso % (Auto) Neut # (Auto) Lymph # (Auto) [place] # (Auto) Eos # (Auto) Baso # (Auto) Immature Gran # (Auto) Sodium 138 Potassium 4.2 D Chloride 107 Carbon Dioxide 22 Anion Gap 8.0 BUN 6 L Creatinine 0.63 Est Cr Clr Drug Dosing 151.2 Est GFR ( Amer) 149.7 Est GFR (Non-Af Amer) 129.1 BUN/Creatinine Ratio 9.8 L Glucose 110 H Calcium 9.1 Total Bilirubin 0.2 Direct Bilirubin < 0.1 AST 15 ALT 17 Alkaline Phosphatase 81 Total Protein 7.1 Albumin 2.4 L Urine Color Urine Appearance Urine pH Ur Specific [place] Urine Protein Urine Glucose (UA) Urine Ketones Urine Blood Urine Nitrite Urine Bilirubin Urine Urobilinogen Ur Leukocyte Esterase POC Ur Test COVID-19 Eval Order Covid19 at [facility] SARS-CoV-2 (PCR) Pending PG Care Time/CCT Total # of Minutes Spent Total Time Spent with Patient: Total time spent is greater than 50% in coordination of care (as documented) at patient's floor/unit and/or counseling patient: Coding Level of Care Code 42247 Subseq Hosp Care Lvl 3 Diagnoses Colitis K52.9 Iron deficiency anemia D50.9 COVID-19 U07.1 Migraine headache G43.909 Thrombocytosis D47.3 Severe protein-calorie malnutrition E43
[2021-01-11] MEDS ORDERED: SUMAtriptan succinate 25 MG TAB PO PRN (22:36)
[2021-01-11 23:54] LABS: Pregnancy Test, Urine Negative (Negative)
[2021-01-12] MEDS: LACTATED RINGER'S 1,000 ML IV SCH ×2 (06:10→18:31)
[2021-01-12] MEDS: methylPREDNISolone 40 MG in SYRINGE 0 ML IV SCH ×2 (08:22→21:35)
[2021-01-12 08:27] LABS: Hematocrit (blood only) 30.1 % (37-47); Hemoglobin 8.9 g/dL (12.0-16.0); Mean Corpuscular Hemoglobin 23.7 pg (25-34); Mean Corpuscular Hgb Conc 29.6 g/dL (32-36); Mean Corpuscular Volume 80.1 fL (80-100); Mean Platelet Volume 8.7 fL (7.4-10.4); Platelet Count 706 K/uL (130-400); RDW Coefficient of Variation 14.6 % (11.5-14.5); RDW Standard Deviation 42.3 fL (36.4-46.3); Red Blood Count 3.76 M/uL (4.2-5.4); White Blood Count 7.64 K/uL (4.8-10.8)
[2021-01-12] MEDS: ACETAMINOPHEN 325 MG TAB PO PRN ×2 (08:46→22:54)
[2021-01-12 09:01] LABS: BUN Creatinine Ratio 14.4 (10-20); Calcium 9.3 mg/dl (8.5-10.1); Est GFR (African American) 144.6 ml/min; Est GFR (Non-African American) 124.7 ml/min; Magnesium 2.4 mg/dl (1.8-2.4); Potassium 3.9 mmol/L (3.5-5.1)
[2021-01-12] MEDS ORDERED: IRON SUCROSE 200 MG in 0.9 % SODIUM CHLORIDE 100 ML IV ONE (09:15)
[2021-01-12 10:07] LABS: Folate (Folic Acid) 12.4 ng/ml (>5.38)
--- NOTE | 2021-01-12 11:51 | Gastroenterology Progress Note ---
Date of Service January 12, 2021 Assessment & Plan (1) Colitis: (2) Anemia: (3) Abdominal pain: Plan: This is a 20-year-old female who was previously in her usual state of health until earlier this summer when she began to develop abdominal symptoms including abdominal cramping and diarrhea. Symptoms worsened and recently she has developed hematochezia with diarrhea, and worsening abdominal pain. She is a [employer] student, typically resides in [place]. Work-up notable for nonspecific lightest on imaging, with elevated inflammatory markers, and anemia. This raises suspicion for IBD versus infectious colitis. Has clinically improved with IV steroids. Today feeling better; is hungry; wants to try clears. - Agree with IV Solu-Medrol 40 mg twice daily - She can advance diet to CL->low-residue diet as tolerated; will start clears this AM - Supportive care with IVF - Analgesia as needed - If she has stool would send for C diff, stool culture - Would monitor and document stool output if any - She is scheduled for GI clinic appointment in January, and I encouraged her to keep this appointment. Likely she will need colonoscopy in follow-up of her symptoms and imaging, lab findings - On DC would recommend she be sent home on prednisone PO 40 mg daily x 1 week, then 30 mg daily until seen by GI in outpt follow-up - GI will sign off, please call with questions Thank you for allowing us to participate in the care of this patient. Please call with any acute changes, questions or concerns. Please see addendum below with additional recommendation from my supervising physician. Admission and Anticipated Discharge Date Admission Date: January 11, 2021 Subjective Spoke to pt via phone. No acute changes overnight Tolerating ice chips; is hungry, wants to eat something No GI output since admission Had some abd discomfort early this AM but not as bad as the pain that led her to come to the hospital; lasted about 1-2 hours No hematemesis, melena, hematochezia, fever, CP, SOB. No nausea, vomiting Review of Systems Review of Systems: A complete review of systems was performed and negative except as noted in HPI Physical Exam Physical Exam: Physical exam not performed as this was a telephone call only Results & Data ([facility]) Vital Signs (Past 12 Hours) Vital Signs Temp Pulse Resp BP Pulse Ox 01/12/21 08:20 36.8 C 85 18 126/84 98 (1) Anemia Anemia type: unspecified type Qualified Code(s): D64.9 - Anemia, unspecified (2) Abdominal pain Abdominal location: unspecified location Qualified Code(s): R10.9 - Unspecified abdominal pain
[2021-01-12] MEDS ORDERED: NON-FORMULARY PATIENT'S OWN MED SCH (20:15)
--- NOTE | 2021-01-12 21:49 | Hospitalist Progress Note ---
Date of Service January 12, 2021 Assessment & Plan (1) Colitis: Plan: History, labs, and CT findings all concerning for IBD - probably Ulcerative Colitis. Infectious colitis theoretically possible but very doubtful. Since starting steroids she has had no stools or blood per rectum. cdiff/stool cx to be checked once she has a stool. GI has seen - they advise ongoing solumedrol, initiation of clear liquids today, and ultimately transitioning to PO prednisone at discharge GI suspects IBD Cont IVF but cut rate to 50cc/hr. Cont solumedrol; add pepcid for GI prophylaxis. (2) Iron deficiency anemia: Plan: Severe. Venofer 200mg IV x 1. Then venofer 300mg IV x 1 tomorrow. Then 3rd dose on Saturday. B12/folate wnl. Low Fe 2nd to GI blood loss from #1. Repeat cbc qod. (3) COVID-19: Plan: Tested positive upon admission. No symptoms except perhaps headache, N/V. Is fully vaccinated. Repeat COVID test last pm negative (cephaid). Will get 3rd test tonight -- if tonight is positive then she indeed has COVID. If negative then likely that first test was falsely positive. Cont airborne isolation. No indication for Remdesivir, etc. (4) Migraine headache: Plan: resolved imitrex prn tylenol prn (5) Thrombocytosis: Plan: could be 2nd to #2 repeat cbc in 48 hours (6) Severe protein-calorie malnutrition: Plan: 10+ pounds of weight loss since late November 21 #1 add boost add MVI add vit D Plan: spoke with pt's mother this evening once again - extensive update given plan of care discussed concern for IBD again discussed questions answered Admission and Anticipated Discharge Date Admission Date: January 11, 2021 Subjective pt feels better today overall less abd pain no bloody stools or diarrhea since before admission did have mild LLQ discomfort after taking clears earlier she felt unwell for several hours this am - fatigue, etc she had this unwell feeling following her IV venofer but had no rash, dy spnea/wheezing, etc headache is improved Review of Systems Review of Systems: gen - no fevers, no chills, mild fatigue HEENT - no loss of taste or smell; no nasal congestion pulm - no cough, wheeze, dyspnea or [place] GI - no emesis musculo - no myalgias Physical Exam Physical Exam: gen - NAD, looks better today mouth - MMM neck - no JVD heart - RRR, s1 s2, no murmur lungs - CTA b/l abd - soft, NT, ND, BS+, no HSM ext - no edema, pulses 2+ b/l skin - no rash Results & Data Results & Data ([facility]) Vital Signs (Past 12 Hours) Vital Signs Temp Pulse Resp BP Pulse Ox 01/12/21 21:42 37.0 C 71 16 129/92 99 01/12/21 15:04 36.9 C 17 135/84 100 Laboratory Results Laboratory Results - last 24 hr 01/11/21 01/11/21 01/11/21 06:15 21:20 21:20 WBC RBC Hgb Hct MCV MCH MCHC RDW Std Deviation RDW Coeff of Jammie Plt Count MPV Sodium Potassium Chloride Carbon Dioxide Anion Gap BUN Creatinine Est Cr Clr Drug Dosing Est GFR ( Amer) Est GFR (Non-Af Amer) BUN/Creatinine Ratio Glucose Calcium Magnesium Vitamin B12 Folate Urine Test POC Ur Test Cancelled COVID-19 Eval Order Covid19 at [facility] SARS-CoV-2 (PCR) NEGATIVE 01/11/21 01/12/21 01/12/21 23:30 08:12 08:12 WBC 7.64 RBC 3.76 L Hgb 8.9 L Hct 30.1 L MCV 80.1 MCH 23.7 L MCHC 29.6 L RDW Std Deviation 42.3 RDW Coeff of Jammie 14.6 H Plt Count 706 H MPV 8.7 Sodium 137 Potassium 3.9 Chloride 104 Carbon Dioxide 27 Anion Gap 7.0 BUN 10 Creatinine 0.70 Est Cr Clr Drug Dosing 136.0 Est GFR ( Amer) 144.6 Est GFR (Non-Af Amer) 124.7 BUN/Creatinine Ratio 14.4 Glucose 107 H Calcium 9.3 Magnesium 2.4 Vitamin B12 Folate Urine Test Negative POC Ur Test COVID-19 Eval Order SARS-CoV-2 (PCR) 01/12/21 08:12 WBC RBC Hgb Hct MCV MCH MCHC RDW Std Deviation RDW Coeff of Jammie Plt Count MPV Sodium Potassium Chloride Carbon Dioxide Anion Gap BUN Creatinine Est Cr Clr Drug Dosing Est GFR ( Amer) Est GFR (Non-Af Amer) BUN/Creatinine Ratio Glucose Calcium Magnesium Vitamin B12 519 Folate 12.40 Urine Test POC Ur Test COVID-19 Eval Order SARS-CoV-2 (PCR) PG Care Time/CCT Total # of Minutes Spent Total Time Spent with Patient: Total time spent is greater than 50% in coordination of care (as documented) at patient's floor/unit and/or counseling patient: Coding Level of Care Code 10115 Subseq Hosp Care Lvl 2 Diagnoses Colitis K52.9 Iron deficiency anemia D50.9 COVID-19 U07.1 Migraine headache G43.909 Thrombocytosis D47.3 Severe protein-calorie malnutrition E43
[2021-01-12] MEDS: PATIENT'S OWN ORAL CONTRACEPTIVE PO SCH (22:52)
[2021-01-13] MEDS: FAMOTIDINE 20 MG TAB PO SCH ×2 (08:44→20:10)
[2021-01-13] MEDS: methylPREDNISolone 40 MG in SYRINGE 0 ML IV SCH ×2 (08:44→20:10)
[2021-01-13] MEDS ORDERED: IRON SUCROSE 300 MG in SODIUM CHLORIDE 0.9% 250 ML IV ONE (09:30)
[2021-01-13] MEDS: CEROVITE ADV FORMULA TAB PO SCH (10:22)
[2021-01-13] MEDS: CHOLECALCIFEROL 1,000 UNITS 25 MCG TAB PO SCH (10:22)
[2021-01-13] MEDS: LACTATED RINGER'S 1,000 ML IV SCH (12:06)
[2021-01-13] MEDS: PATIENT'S OWN ORAL CONTRACEPTIVE PO SCH (20:10)
--- NOTE | 2021-01-13 21:45 | Hospitalist Progress Note ---
Date of Service January 13, 2021 Assessment & Plan (1) Colitis: Plan: History, labs, and CT findings all concerning for IBD - probably Ulcerative Colitis. Infectious colitis theoretically possible but very doubtful. Since starting steroids she has had no stools or blood per rectum. cdiff/stool cx to be checked once she has a stool. GI has seen - they too suspect IBD. Clears started yesterday. Advance to full liquids today; then low fiber tomorrow. Stop IV fluids late tonight Cont solumedrol; cont pepcid for GI prophylaxis. At discharge will transition to PO prednisone w/ slow taper over weeks. Has f/u with GI locally on 01/25. Outpatient colonoscopy planned. [employer] consult requested to reviewe low fiber diet w/ her. (2) Iron deficiency anemia: Plan: Severe. 2nd #1. Venofer 200mg IV x 1 yesterday. Then venofer 300mg IV x 1 today. Then venofer 300mg IV x 1 on Saturday. B12/folate wnl. Repeat cbc am. (3) COVID-19: Plan: 2 out of 3 tests are positive. Her sore throat, fatigue, headache all likely due to such. Fortunately no respiratory symptoms and no hypoxia. No indication for Remdesivir, etc. She is ~day 4 of illness (started Saturday am with headache, weakness, etc). We discussed isolation post-d/c, criteria for discontinuation of isolation at home, etc. Cont airborne precautions here. (4) Migraine headache: Plan: comes/goes likely induced from COVID illness imitrex prn tylenol prn (5) Thrombocytosis: Plan: could be 2nd to #2 repeat cbc am (6) Severe protein-calorie malnutrition: Plan: 10+ pounds of weight loss since late November 21 #1 check 25-OH vit D am cont boost cont MVI cont vit D supplementation nutrition consult appreciated Plan: spoke with pt's mother this evening told her I anticipate d/c tomorrow on Saturday plan of care extensively reviewed given that pt has COVID, will be traveling tomorrow to her home in [place], etc -- give lovenox 40mg x 1 now for DVT proph then 40mg x 1 tomorrow am Admission and Anticipated Discharge Date Admission Date: January 11, 2021 Subjective patient again had headache overnight - now resolved continues with waxing/waning fatigue abd pain MUCH improved liquids do NOT make pain worse no stools no blood per rectum no nausea or emesis overall feeling much better she is ambulating independently in the room pt states her mother will pick her up at discharge, bring her to her car which is local in [facility], and then she is driving back to [place] where she will isolate at her parent's home due to COVID+ status Review of Systems Review of Systems: gen - no fevers or chills HEENT - still no loss of taste or smell; no nasal congestion; woke up with mild sore throat this am CV - no chest pain or pleuritic pain pulm - no cough or dyspnea Physical Exam Physical Exam: gen - NAD, looks well today, well hydrated mouth - MMM neck - no JVD heart - RRR, s1 s2, no murmur lungs - CTA b/l abd - soft, NT, ND, BS+, no HSM ext - no edema, pulses 2+ b/l skin - no rash Results & Data Results & Data ([facility]) Vital Signs (Past 12 Hours) Vital Signs Temp Pulse Resp BP Pulse Ox 01/13/21 20:18 36.5 C 68 16 110/75 98 01/13/21 17:35 36.9 C 56 L 16 122/75 100 01/13/21 12:09 36.4 C L 70 18 119/75 97 01/13/21 10:30 36.4 C L 76 18 111/83 100 Laboratory Results Laboratory Results - last 24 hr 01/12/21 01/12/21 22:27 22:27 COVID-19 Eval Order Covid19 at [facility] SARS-CoV-2 (PCR) POSITIVE A* PG Care Time/CCT Total # of Minutes Spent Total Time Spent with Patient: Total time spent is greater than 50% in coordination of care (as documented) at patient's floor/unit and/or counseling patient: Coding Level of Care Code 31477 Subseq Hosp Care Lvl 2 Diagnoses Colitis K52.9 Iron deficiency anemia D50.9 COVID-19 U07.1 Migraine headache G43.909 Thrombocytosis D47.3 Severe protein-calorie malnutrition E43
[2021-01-13] MEDS ORDERED: ENOXAPARIN INJ 40 MG/0.4 ML SYR SQ ONE (22:00)
[2021-01-14 07:38] LABS: Hematocrit (blood only) 30.8 % (37-47); Hemoglobin 9.2 g/dL (12.0-16.0); Mean Corpuscular Hemoglobin 23.7 pg (25-34); Mean Corpuscular Hgb Conc 29.9 g/dL (32-36); Mean Corpuscular Volume 79.4 fL (80-100); Mean Platelet Volume 8.3 fL (7.4-10.4); Nucleated RBC # (auto) 0.04 K/uL (0-0); Nucleated RBC % (auto) 0.3 %; Platelet Count 760 K/uL (130-400); RDW Coefficient of Variation 14.5 % (11.5-14.5); RDW Standard Deviation 41.5 fL (36.4-46.3); Red Blood Count 3.88 M/uL (4.2-5.4); White Blood Count 13.44 K/uL (4.8-10.8)
[2021-01-14 07:58] LABS: BUN Creatinine Ratio 12.9 (10-20); Calcium 8.9 mg/dl (8.5-10.1); Creatinine Clr Calc Pharmacy 120.5 ml/min; Est GFR (African American) 124.9 ml/min; Est GFR (Non-African American) 107.8 ml/min
[2021-01-14] MEDS: ENOXAPARIN INJ 40 MG/0.4 ML SYR SQ SCH (09:08)
[2021-01-14] MEDS: FAMOTIDINE 20 MG TAB PO SCH ×2 (09:09→20:19)
[2021-01-14] MEDS: CEROVITE ADV FORMULA TAB PO SCH (09:09)
[2021-01-14] MEDS: CHOLECALCIFEROL 1,000 UNITS 25 MCG TAB PO SCH (09:09)
[2021-01-14] MEDS ORDERED: IRON SUCROSE 300 MG in SODIUM CHLORIDE 0.9% 250 ML IV ONE (10:00)
[2021-01-14] MEDS: methylPREDNISolone 40 MG in SYRINGE 0 ML IV SCH (11:16)
--- NOTE | 2021-01-14 13:00 | XRay Report ---
XR chest 1V portable HISTORY: 20 years-old Female chest pain, COVID 19 acute chest pain COMPARISON: CT abdomen and pelvis 01/10/2021 TECHNIQUE: Portable AP view of the chest FINDINGS: Cardiomediastinal and hilar silhouettes are within normal limits. No pneumothorax, pleural effusion, airspace consolidation or overt pulmonary edema. No acute fracture. IMPRESSION: No acute process. ACT 112: Negative or not required by law. The above report was generated using voice recognition software. It may contain grammatical, syntax o r spelling errors. Electronically signed by: Fei Martin M.D. 01/14/2021 12:59 PM
[2021-01-14] MEDS: PATIENT'S OWN ORAL CONTRACEPTIVE PO SCH (20:19)
--- NOTE | 2021-01-15 06:07 | Discharge Summary ---
Date of Service date of admission - January 11, 2021 date of discharge - January 15, 2021 Admission HPI Per Admitting Provider Vera Segura is a 20yo female with no significant medical or surgical history presenting with abdominal pain. Patient is a [employer] student studying [employer]. She has been having intermittent abdominal pain for the last 3-4 months. She was seen by her PCP in [place] prior to returning to school. She had an abdominal ultrasound and lab work which was unrevealing. She is scheduled to see Greg MOSER on 01/25/21. She reports worsening abdominal pain over the last week. Abdominal pain is severe, cramping, located in bandlike distribution of the lower abdomen. She has some vomiting in response to the pain when it is severe but does not endorse nausea. She has intermittent abdominal bloating, diarrhea with blood this week. Pain is unrelated to oral intake and is almost always relieved with bowel movement. She denies painful bowel movements. Has occasional tenesmus. Patient has tried dietary elimination with no relief in symptoms. She cut out lactose x 2 weeks as well as gluten x 2 weeks with no improvement. She has no personal or family history of inflammatory bowel disease. No recent travel, sick contacts, altered dietary habits or ingestion of raw/undercooked foods. Additionally she describes occasional migratory body aches and pains such as pain in her shoulders. She had pain in her right heel 4 days ago with difficulty walking. She also had a headache today that she describes as shooting pain in her forehead. Otherwise, no complaints. She denies fever, chills, cough, SOB, chest pain. Denies rashes, skin lesions, joint pain or inflammation, eye redness or pain, oral lesions/ulcers ER Course: Solumedrol 40mg IV, Toradol 15mg IV, NSS x 2L Principal Diagnosis 1. suspected IBD (inflammatory bowel disease) 2. COVID-19 infection 3. suspected pericarditis 2nd #2 Discharge Exam Gen: NAD, nontoxic Mouth: MMM, no ulcers or lesions Heart: RRR, s1 s2, no murmur or rub Lungs: CTA b/l Abd: soft, NT, ND, BS+, no HSM Ext: no edema, pulses 2+ b/l Discharge Data Allergies Allergy/AdvReac Type Severity Reaction Status Date / Time amoxicillin Allergy Verified 01/10/21 16:55 Penicillins Allergy Verified 01/10/21 16:55 apple AdvReac Verified 01/13/21 17:51 carrot AdvReac Verified 01/13/21 17:51 pear AdvReac Verified 01/13/21 17:51 Consultations [facility] Procedures Performed Echocardiogram: * EF 60-65% * TRACE pericardial effusion * mild LVH * normal valve function Ordered Studies Abdomen/Pelvis CT 01/10/21 16:40 CT OF THE ABDOMEN AND PELVIS WITH CONTRAST CLINICAL HISTORY: Abdominal pain. Diarrhea. COMPARISON STUDY: None. TECHNIQUE: Following IV administration of 92 mL of Optiray, axial images of the abdomen and pelvis were obtained from the lung bases to the proximal femurs. Luz ges were reviewed in the axial, sagittal, and coronal planes. IV contrast was administered without complication. Automated exposure control was utilized for the study. A dose lowering technique was utilized adhering to the principles of ALARA. CT DOSE: 356.61 mGy.cm FINDINGS: Lung bases are unremarkable. No pneumatosis, free air or portal venous gas is present. The liver, spleen, adrenal glands, kidneys and pancreas are normal. There is no biliary or pancreatic ductal dilatation. No perihepatic or pericholecystic infiltration. There is no acute process. The nephrograms are symmetric. The caliber of the appendix is normal, measuring 5 mm. There is a probable 7 mm appendicolith within the appendiceal tip. There is mild adjacent infiltration. However, the findings do not strongly suggest acute appendicitis. Of note, there is long segment wall thickening of the colon and to a lesser extent the rectum. There is relative sparing of the ascending colon and cecum. There is evidence for mild hyperemia. There is trace fluid within the pelvis. There are a few mildly enlarged mesenteric lymph nodes. Index node on image 194 of 471 measures 1.3 x 1 cm. Numerous mildly enlarged pericolonic lymph nodes are also present. An index node along the superior aspect of the transverse colon measures 1.2 x 1 cm. Major vasculature is patent. No acute fracture or suspicious lesion is identified within the visualized skeletal structures. IMPRESSION: 1. Wall thickening of the majority of the colon with evidence for hyperemia. The findings represent a nonspecific colitis which could be infectious or inflammatory, such as ulcerative colitis, in etiology. No abscess. No free air. 2. Appendicolith within the appendiceal tip with mild adjacent infiltration. However, normal caliber appendix. Overall, the findings do not strongly suggest acute appendicitis. 3. Mildly enlarged mesenteric and pericolonic lymph nodes. Although nonspecific, these are probably reactive. ACT 112: Negative or not required by law. Electronically signed by: Alvaro Hartley M.D. 01/10/2021 6:07 PM Chest X-Ray 01/14/21 11:31 XR chest 1V portable HISTORY: 20 years-old Female chest pain, COVID 19 acute chest pain COMPARISON: CT abdomen and pelvis 01/10/2021 TECHNIQUE: Portable AP view of the chest FINDINGS: Cardiomediastinal and hilar silhouettes are within normal limits. No pneumothorax, pleural effusion, airspace consolidation or overt pulmonary edema. No acute fracture. IMPRESSION: No acute process. ACT 112: Negative or not required by law. The above report was generated using voice recognition software. It may contain grammatical, syntax or spelling errors. Electronically signed by: Fei Martin M.D. 01/14/2021 12:59 PM Hospital Course (1) Colitis: History, labs, and CT findings all concerning for IBD - probably Ulcerative Colitis. Infectious colitis theoretically possible but very doubtful. Initiation of steroids rapidly stopped her blood per rectum and diarrhea along with abdominal pain. Greg MOSER saw patient in consult and they, too, felt new-onset IBD was likely. They advised IV steroids while hospitalized, with transition to oral prednisone at discharge. She had bowel rest in the early portion of her stay, then was resumed on clears, then advanced to low fiber diet. She tolerated such without difficulty. At discharge she will - * take prednisone 40mg once daily x 7 days, then * 30mg daily until she sees Greg MOSER as an outpatient * outpatient f/u is scheduled for 01/25/2021 Outpatient colonoscopy for definitive diagnosis will take place in the near- future. (2) Iron deficiency anemia: Severe. 2nd #1. Venofer 200mg IV x 1, then 2 additional doses of 300mg each. Ferritin level was 7. B12/folate wnl. Hemoglobin on discharge was 9.3. (3) COVID-19: 2 out of 3 tests here were positive. She had been fully vaccinated in early 2020. She had sore throat, fatigue, and headache during the stay. Fortunately no respiratory symptoms and no hypoxia. CXR and O2 sats were wnl. There was never an indication for Remdesivir, etc. She was about 5 days into her illness at the time of hospital discharge. 2 nights prior to discharge she developed chest pain that was worse with laying supine. EKG showed diffuse J-point elevation. Echo was completed showing trace pericardial effusion. Further, on the night before discharge, she again had upper chest discomfort with laying supine. Acute viral pericarditis was suspected given her constellation of symptoms/findings/echo results. We advised colchicine 0.6mg daily x 90 days. The steroids for #1 will help in the short term as well. Recommend a repeat echo in 2 months to ensure resolution of the effusion and recheck LV. (4) Migraine headache: likely induced from her COVID illness resolved by time of discharge (5) Thrombocytosis: could be 2nd to #2 could also be reactive to her COVID illlness discharge platelet level was lower 700s she will need a repeat CBC within a week of discharge for stability (6) Severe protein-calorie malnutrition: 10+ pounds of weight loss since late November 2020. 2nd #1. cont boost cont MVI cont vit D supplementation nutrition consult was completed during the stay her nutrition should improve with Rx of #1 (7) Chest pain: likely 2nd to #8 see below (8) Pericarditis: suspected 2nd COVID-19 infection symptoms, EKG findings, and trace pericardial effusion on echo all suggestive of such prednisone for #1 will help with acute symptoms colchicine 0.6mg daily x 90 days will help resolve the issue longer-term and prevent relapse will need f/u echo in 2 months to recheck the pericardium, LV function, etc. The patient has multiple DVT risk factors - OCP use, COVID illness, probable IBD. However, DVT prophylaxis was deferred at discharge because of recent, severe rectal bleeding from the IBD and the concerns of inducing additional bleeding. Patient was counseled (verbally and written) about DVT prevention, frequent walks/stretching, etc. Total Time Total Time Spent Total Time Spent (In Minutes): 60 Discharge Plan Discharge Items Patient Disposition: Home - Self-Care Reason For Visit: ABDOMINAL PAIN, BLOODY STOOLS Discharge Diagnosis: 1. abdominal pain, bloody stools, CAT scan of abdomen/pelvis showing "colitis" - everything suggests Inflammatory Bowel Disease. Abdominal pain/diarrhea/bloody stools improved with steroids. 2. COVID-19 infection. 3. severe iron deficiency anemia - due to suspected Inflammatory Bowel Disease. 4. chest discomfort - either pericarditis or gastroesophageal reflux. 5. high platelet count - likely due to #3, and potentially #2. Activity: As commented below Activity Comment: gradually increase activities over the next week Bathing: No limitations Exercise/Sports: Wait until after follow-up appointment Driving/Machine Use: No limitations Non-emergency contact: Primary Care Provider and Glove Pairer Call non-emergency contact if: you have any medication questions, your symptoms worsen, your pain is not controlled, your pain is worsening and you have a fever Follow-up/Referrals: Matt Tucker DO [Physician] - 01/25/21 (please keep appointment with [facility] as scheduled on 01/25/2021.) [facility] [Primary Care Provider] - (SHE WILL MAKE A HOSPITAL F/U VISIT WITH HER PCP IN [place]. SHE WILL LET HIS OFFICE KNOW SHE WAS +COVID.) Diet: Low Fiber Addtl Attending Provider Instructions: Ms Segura, Broderick were treated at [facility] for colitis which was seen on your CAT scan at time of admission. Following admission you were started on IV steroids for the colitis. Greg MOSER saw you in consult, and they feel that you likely have a form of Inflammatory Bowel Disease. There are 2 types - Crohn's Disease, and Ulcerative Colitis. You will need a colonoscopy in the near future to make the diagnosis. You improved nicely with steroids. Your abdominal pain, blood in the stools, and diarrhea all resolved. You had evidence of severe iron deficiency anemia. We gave you 3 infusions of intravenous iron during the visit. In addition, your COVID testing was positive. Your headache, fatigue, sore throat, etc were due to COVID. Fortunately your chest x-ray doesn't show pneumonia and your oxygen levels have been normal. Finally, you had an episode of chest discomfort on the AM of 01/14/21. We performed an echocardiogram (heart ultrasound) that showed normal heart function and a trace of fluid in the sac (pericardium) of the heart. To be on the safe side I would recommend that we simply treat for pericarditis. The other possibility is that the chest discomfort was gastroesophageal reflux - which we will be treating as well. Recommendations - 1. starting 9/27 - take prednisone as follows - * 40mg by mouth daily with food x 7 days, then * 30mg by mouth daily x 7 days, then * further instructions to follow from your GI physicians 2. take pantoprazole 40mg once daily for reflux and to prevent stomach irritation; take your first dose tomorrow morning 3. take a multivitamin daily 4. since you had missed a couple of days of your control pills please know that until your next menstrual cycle the effectiveness of your pill will potentially be less 5. on your trip back to [place] please stop every hour, get out of your car, stretch your legs, do a little walking (5 minutes or so), then continue on your journey. COVID19, being in the hospital, taking control pills, and having potential inflammatory bowel disease all increase the risk of DVT blood clots. You did receive a lovenox shot this am to help prevent blood clots. That shot will last until tomorrow morning. 6. for possible pericarditis - * take colchicine 0.6mg once daily for 3 months * the prednisone for the suspected Inflammatory bowel disease also helps with the pericarditis * please know that colchicine can sometimes cause diarrhea in some individuals Follow-up - see separate section Return to any hospital if - * you develop fevers over 100 degrees * you have recurrent abdominal pains * you have shortness of breath * you have ongoing, recurrent chest pains * you develop recurrent bloody stools * you have a swollen, painful leg or significant cramps in one of your legs * any other concerns It was our pleasure caring for you at [facility] [address] [facility]! Continue to feel better, -Dr Meng Pending Studies at Discharge: No Stand-Alone Forms: My [facility], Smoking Cessation Medications and DC Order Prescriptions: New prednisone 10 mg tablet 10 mg PO .daily as directed Qty: 100 RF: 0 pantoprazole [Protonix] 40 mg tablet,delayed release (DR/EC) 40 mg PO QAM Qty: 30 RF: 1 colchicine 0.6 mg tablet 0.6 mg PO DAILY Qty: 30 RF: 2 Continued acetaminophen 325 mg Tablet 650 mg PO QID PRN (Reason: Pain) RF: 0 Control 1 tab PO HS RF: 0 Discharge Orders: Discharge Order (Routine); Ordered 01/15/21 Ordered By: Rojas Andrade/Other Patient Handouts: Caring for Someone Who Has COVID-19, Disinfecting Your Home of COVID-19, 2019-nCoV, COVID-19 Prevention, COVID-19 Home Care, Understanding Colitis, ED Pericarditis Admission Data Admit Date/Time: 01/11/21 19:48 Attending Provider: Rojas Meng Admit Provider: Vera Elizabeth Primary Care Provider: [facility] Other Providers: Matt Tucker ; Vera Elizabeth Other Interventions: Discharge Summary Assessment (RN) Last Done: 01/15/21 13:24 Coding Level of Care Code D/C DAY MANAGEMENT >30 MINS Diagnoses Colitis K52.9 Iron deficiency anemia D50.9 COVID-19 U07.1 Migraine headache G43.909 Thrombocytosis D47.3 Severe protein-calorie malnutrition E43 Chest pain R07.9 Pericarditis I31.9
--- NOTE | 2021-01-15 06:17 | Hospitalist Progress Note ---
Date of Service January 14, 2021 Assessment & Plan (1) Chest pain: Plan: Differential - GERD vs pericarditis vs PE vs developing COVID-19 pneumonia vs other. CXR without signs of pneumonia. O2 sats 99-100% in RA - PE unlikely. Could be GERD given that she is on high-dose steroids, symptoms occurred while flat, etc. Add PPI. Cannot rule out pericarditis in the midst of COVID19 infection (pain improved with sitting up, EKG findings, etc). However, typically pericarditis pain would not resolve fully on its own without treatment. Plan - limited echo to eval the pericardium observe overnight for recurrent symptoms repeat inflammatory markers in am add PPI cont H2 marlene while hospitalized then d/c at discharge and cont on PPI for GI prophy repeat EKG in am of note - troponin checked this afternoon (about 6 hours following the episode) and was negative (2) Colitis: Plan: IMPROVED. History, labs, and CT findings all concerning for IBD - probably Ulcerative Colitis, Crohn's less likely. Infectious colitis theoretically possible but very doubtful. Since starting steroids she has had no stools or blood per rectum. cdiff/stool cx to be checked once she has a stool. GI has seen - they too suspect IBD. Tolerated clears then full liquids - low fiber started this am w/ breakfast. Cont solumedrol today, then over to PO prednisone 40mg daily starting tomorrow. Cont pepcid for GI prophylaxis. Adding PPI as well - see #1 above. Has f/u with GI locally on 01/25. Outpatient colonoscopy planned. Will remain on prednisone at discharge. [employer] consult appreciated. (3) Iron deficiency anemia: Plan: Severe. 2nd #1. Venofer 200mg IV x 1, then venofer 300mg IV x 1 yesterday, then venofer 300mg IV x 1 to conclude her series. B12/folate wnl. Repeat cbc stable today. (4) COVID-19: Plan: 2 out of 3 tests are positive. Her sore throat, fatigue, headache all likely due to such. Fortunately no respiratory symptoms and no hypoxia. No indication for Remdesivir, etc. She is ~day 5 of illness (started Saturday am with headache, weakness, etc). We discussed isolation post-d/c, criteria for discontinuation of isolation at home, etc. Cont airborne precautions here. see #1 re: chest pain this am. (5) Migraine headache: Plan: comes/goes likely induced from COVID illness imitrex prn tylenol prn (6) Thrombocytosis: Plan: could be 2nd to #2 and #3 repeat cbc am for stability (7) Severe protein-calorie malnutrition: Plan: 10+ pounds of weight loss since late November 21 #1 25-OH vit D level pending cont boost cont MVI cont vit D supplementation while awaiting level nutrition consult appreciated Plan: spoke with pt's mother this evening told her I anticipate d/c tomorrow on Saturday as long as echo looks good, no significant recurrent chest symptoms, etc. plan of care extensively reviewed cont LOVENOX 40mg daily for DVT proph Admission and Anticipated Discharge Date Admission Date: January 11, 2021 Subjective patient overall had a good night however, this am about 0630, she awoke from sleep with upper chest discomfort "kind of like a tightness" - describes it like she needed to open up her lungs she had been sleeping flat in bed the symptoms were relieved by sitting up in bed symptoms lasted about 15-20 minutes then resolved no dyspnea no cough no EASLEY since that episode no further symptoms has never had chest discomfort like this doing well from GI standpoint ate low fiber breakfast this am without difficulty no significant abd pain no nausea or emesis no BM since admission no blood per rectum remains tired/fatigued Review of Systems Review of Systems: gen - no fevers or chills heent - no loss of taste or smell; no congestion CV - see HPI; no palpitations pulm - no cough, wheeze, dyspnea, EASLEY gi - improved abd pain; no N/V Physical Exam Physical Exam: gen - NAD, again looks well today, well hydrated mouth - MMM neck - no JVD chest - no tenderness to palpation heart - RRR, s1 s2, no murmur lungs - CTA b/l abd - soft, NT, ND, BS+, no HSM ext - no edema, pulses 2+ b/l skin - no rash Results & Data Results & Data ([facility]) Vital Signs (Past 12 Hours) Vital Signs Temp Pulse Resp BP Pulse Ox 01/14/21 20:20 36.9 C 80 16 126/79 98 Laboratory Results Laboratory Results - last 24 hr 01/14/21 01/14/21 01/14/21 07:23 07:23 07:23 WBC 13.44 H RBC 3.88 L Hgb 9.2 L Hct 30.8 L MCV 79.4 L MCH 23.7 L MCHC 29.9 L RDW Std Deviation 41.5 RDW Coeff of Jammie 14.5 Plt Count 760 H MPV 8.3 Absolute Nucleated RBC 0.04 H Nucleated RBC % (auto) 0.3 Sodium 138 Potassium 4.0 Chloride 105 Carbon Dioxide 29 Anion Gap 3.0 BUN 10 Creatinine 0.79 Est Cr Clr Drug Dosing 120.5 Est GFR ( Amer) 124.9 Est GFR (Non-Af Amer) 107.8 BUN/Creatinine Ratio 12.9 Glucose 104 H Calcium 8.9 Troponin I 25-OH Vitamin D Total Pending 01/14/21 13:12 WBC RBC Hgb Hct MCV MCH MCHC RDW Std Deviation RDW Coeff of Jammie Plt Count MPV Absolute Nucleated RBC Nucleated RBC % (auto) Sodium Potassium Chloride Carbon Dioxide Anion Gap BUN Creatinine Est Cr Clr Drug Dosing Est GFR ( Amer) Est GFR (Non-Af Amer) BUN/Creatinine Ratio Glucose Calcium Troponin I < 0.015 25-OH Vitamin D Total Diagnostic Findings cxr - my reading - no infiltrates EKG - my reading - J-point elevation anterior leads and limb leads (diffuse) PG Care Time/CCT Total # of Minutes Spent Total Time Spent with Patient: Total time spent is greater than 50% in coordination of care (as documented) at patient's floor/unit and/or counseling patient: Coding Level of Care Code 78026 Subseq Hosp Care Lvl 3 Diagnoses Colitis K52.9 Iron deficiency anemia D50.9 COVID-19 U07.1 Migraine headache G43.909 Thrombocytosis D47.3 Severe protein-calorie malnutrition E43 Chest pain R07.9
--- NOTE | 2021-01-15 07:23 | Electrocardiogram Report ---
Test Reason : Blood Pressure : / mmHG Vent. Rate : 094 BPM Atrial Rate : 094 BPM P-R Int : 142 ms QRS Dur : 088 ms QT Int : 336 ms P-R-T Axes : 054 047 057 degrees QTc Int : 420 ms Normal sinus rhythm Early repolarization Abnormal ECG No previous ECGs available Confirmed by Naeem Henriquez ([id number]) on 01/15/2021 7:22:52 AM Referred By: REFERRED SELF Confirmed By:Naeem Henriquez
[2021-01-15 07:31] LABS: Hematocrit (blood only) 31.2 % (37-47); Hemoglobin 9.3 g/dL (12.0-16.0); Mean Corpuscular Hemoglobin 24.1 pg (25-34); Mean Corpuscular Hgb Conc 29.8 g/dL (32-36); Mean Corpuscular Volume 80.8 fL (80-100); Mean Platelet Volume 8.6 fL (7.4-10.4); Nucleated RBC # (auto) 0.08 K/uL (0-0); Nucleated RBC % (auto) 0.5 %; Platelet Count 729 K/uL (130-400); RDW Coefficient of Variation 14.7 % (11.5-14.5); RDW Standard Deviation 42.8 fL (36.4-46.3); Red Blood Count 3.86 M/uL (4.2-5.4); White Blood Count 16.62 K/uL (4.8-10.8)
[2021-01-15 08:01] LABS: BUN Creatinine Ratio 19.5 (10-20); C Reactive Protein 0.81 mg/dl (0-0.29); Calcium 8.8 mg/dl (8.5-10.1); Creatinine Clr Calc Pharmacy 123.7 ml/min; Est GFR (African American) 128.8 ml/min; Est GFR (Non-African American) 111.1 ml/min; Potassium 3.7 mmol/L (3.5-5.1)
[2021-01-15] MEDS ORDERED: predniSONE 20 MG TAB PO SCH (09:00)
[2021-01-15] MEDS ORDERED: PANTOprazole 40 MG TAB PO SCH (09:00)
[2021-01-15] MEDS: CHOLECALCIFEROL 1,000 UNITS 25 MCG TAB PO SCH (09:30)
[2021-01-15] MEDS: FAMOTIDINE 20 MG TAB PO SCH (09:34)
[2021-01-15] MEDS: CEROVITE ADV FORMULA TAB PO SCH (09:34)
[2021-01-15] MEDS: ENOXAPARIN INJ 40 MG/0.4 ML SYR SQ SCH (09:34)
--- NOTE | 2021-01-15 14:05 | XCELERA ---
[id number]
[2021-01-15] MEDS ORDERED: COLCHICINE 0.6 MG TAB PO ONE (14:30)
--- NOTE | 2021-01-16 06:20 | Electrocardiogram Report ---
Test Reason : Blood Pressure : / mmHG Vent. Rate : 091 BPM Atrial Rate : 091 BPM P-R Int : 146 ms QRS Dur : 092 ms QT Int : 348 ms P-R-T Axes : 054 062 046 degrees QTc Int : 428 ms Normal sinus rhythm with sinus arrhythmia ST elevation, consider early repolarization Abnormal ECG When compared with ECG of 14-JAN-2021 11:47, No significant change was found Confirmed by Naeem Henriquez ([id number]) on 01/16/2021 6:20:16 AM Referred By: REFERRED SELF Confirmed By:Naeem Henriquez
== END 2021-01-15 14:56 | disposition home or self-care (01) | DRG 385 ==
LOC: 2S 14:49 → ED 14:49 → SUATTDRO 20:03 → 2S 21:33 → 3E 23:03